=== PATIENT | female | born 1980 | race Two or more races ===

== ENCOUNTER 2019-08-01 20:06 | Emergency (ER) | payer MEDICAID ==
[~2019-08-01] VITALS: Ht 157.5 cm; Wt 103.0 kg
[2019-08-01 22:08] VITALS: BP 158/104
[2019-08-01] MEDS ORDERED: cefTRIAXone SOD 1,000 MG VL IM ONE (22:15)
== END 2019-08-01 23:19 | disposition home or self-care (01) ==
LOC: ER 20:16
DX: L03.031 Cellulitis of right toe (principal); B35.1 Tinea unguium
CPT/HCPCS: 96372; 99283; J0696